=== PATIENT | male | born 1935 | race Caucasian/White ===

== ENCOUNTER 2020-01-02 07:13 | Outpatient (CLI) | payer MEDICARE, SELFPAY ==
[2020-01-02 07:53] LABS: Alanine Aminotransferase 19 U/L (4-50); Aspartate Amino Transferase 36 U/L (17-59); Cholesterol 131 mg/dL (0-200); HDL Direct 32 mg/dL; Triglycerides 86 mg/dL (<150)
[2020-01-02 08:04] LABS: LDL Cholesterol Direct 87 mg/dL
== END 2020-01-02 07:14 | disposition home or self-care (01) ==
LOC: ANHLAB 07:21
DX: I25.10 Atherosclerotic heart disease of native coronary artery without angina pectoris (principal)
CPT/HCPCS: 36415; 80061; 84450; 84460

== ENCOUNTER 2020-09-12 11:37 | Outpatient (NON) | payer MEDICARE, SELFPAY ==
[2020-09-14 13:24] LABS: SARS-CoV-2 RNA PCR Negative
== END 2020-09-12 11:38 ==
DX: Z20.828 Contact with and (suspected) exposure to other viral communicable diseases (principal)
CPT/HCPCS: 87635; C9803; U0003

== ENCOUNTER 2020-09-17 08:23 | Outpatient (CLI) | payer MEDICARE, SELFPAY ==
[2020-09-17 09:15] LABS: Cholesterol 112 mg/dL (0-200); HDL Direct 41 mg/dL; Triglycerides 54 mg/dL (<150)
[2020-09-17 09:26] LABS: LDL Cholesterol Direct 52 mg/dL
== END 2020-09-17 08:24 | disposition home or self-care (01) ==
DX: E78.5 Hyperlipidemia, unspecified (principal)
CPT/HCPCS: 36415; 80061

== ENCOUNTER 2021-01-10 06:56 | Outpatient (CLI) | payer MEDICARE, SELFPAY ==
[2021-01-10 07:52] LABS: Alanine Aminotransferase 20 U/L (4-50); Albumin Level 4.2 g/dL (3.5-5.1); Alkaline Phosphatase 57 U/L (38-126); Anion Gap 3 mmol/L (8-16); Aspartate Amino Transferase 35 U/L (17-59); Bilirubin,Total 0.4 mg/dL (0.2-1.3); Blood Urea Nitrogen 16 mg/dL (9-20); Calcium 9.4 mg/dL (8.4-10.2); Carbon Dioxide 33 mmol/L (22-30); Chloride 104 mmol/L (98-107); Cholesterol 114 mg/dL (0-200); Estimated Glomerular Filt Rate 52; Glucose 101 mg/dL (75-110); HDL Direct 36 mg/dL; Potassium 4.5 mmol/L (3.4-5.0); Sodium 140 mmol/L (137-145); Triglycerides 85 mg/dL (<150)
[2021-01-10 08:02] LABS: LDL Cholesterol Direct 58 mg/dL
== END 2021-01-10 06:57 | disposition home or self-care (01) ==
LOC: ANHLAB 07:07
DX: I25.10 Atherosclerotic heart disease of native coronary artery without angina pectoris (principal); I34.0 Nonrheumatic mitral (valve) insufficiency; E78.5 Hyperlipidemia, unspecified
CPT/HCPCS: 36415; 80053; 80061

== ENCOUNTER 2021-06-26 18:11 | Emergency (ER) | payer MEDICARE, SELFPAY ==
[2021-06-26 18:25] VITALS: BP 150/65; PULSE 51; RESP 18; TEMP 36.2; O2SAT 99
--- NOTE | 2021-06-26 18:33 | ED.DENTAL ---
HPI - Dental/Oral General Chief complaint: Dental/Oral Stated complaint: Thrush Time Seen by Provider: 06/26/21 18:33 Source: patient and RN notes reviewed Mode of arrival: ambulatory Limitations: no limitations History of Present Illness HPI Narrative: 86-year-old male presents to the [facility] with concerns for thrush. Had been on antibiotics and using Peridex and states the Peridex started burning and noticed this yellowy film in his mouth. No trouble eating. Had been on antibiotics Related Data Home Medications Medication Instructions Recorded Confirmed pravastatin 20 mg tablet 20 mg PO DAILY 01/05/21 06/26/21 chlorhexidine gluconate DIRECTED 06/26/21 Allergies Allergy/AdvReac Type Severity Reaction Status Date / Time No Known Allergies Allergy Verified 06/26/21 18:31 Review of Systems Review of Systems: All systems reviewed & are unremarkable except as noted in HPI and below Constitutional: Constitutional: Reports no additional constitutional complaints Eyes: Eyes: Reports no additional eye complaints ENT: Reports as per HPI Comments: yellow/ white spots on tongue and roof of the mouth Cardiovascular: Cardiovascular: Reports no additional cardiovascular complaints Respiratory: Respiratory: Reports no additional respiratory complaints Musculoskeletal: Musculoskeletal: Reports no additional musculoskeletal complaints Integumentary/Breasts: Skin/Breast: Reports system reviewed and no additional complaints, except as docu Neurologic: Reports system reviewed and no additional complaints, except as documented Psychiatric: Psychiatric: Reports no additional psychiatric complaints Allergic/Immunologic: Allergic/Immunologic: Reports no additional allergic/immunologic complaints [facility] Past Medical History Medical History High cholesterol Social History Social History Smoking status: Never smoker Alcohol intake: never Comments At the time of my signature, I reviewed and agree with the nursing past medical, surgical, social, and family history. There is no relevant family history pertinent to the patient complaint. Exam Const: General: healthy appearing, no acute distress and alert Nutritional Appearance: well nourished Orientation/consciousness: patient oriented x3 Limitations: no limitations HENMT: Head: normal to inspection Ears: hearing grossly normal bilaterally (Wears hearing aids bilateral), external ears normal, TM's normal bilaterally and EAC's normal General nose exam: Normal external nose present Face and sinus: normal facial exam Mouth: No dry mucous membranes, No drooling, No mouth trauma, No muffled voice, No trismus and Yes other (Yellow-white coating to the top of the tongue and roof of the mouth) Teeth and gingiva: other (Did not have his teeth in) Throat: posterior oropharynx normal Eyes: Pupils: Equal, round and reactive pupils present Neck: Neck: normal visual inspection, no lymphadenopathy and no meningeal signs Chest: Chest palpation & inspection: normal inspection of the chest Resp: Effort & Inspection: normal respiratory effort Auscultation: clear to auscultation bilaterally Cardio: Rate: regular rate Rhythm: regular rhythm Skin: General skin exam: normal color Rashes: no rashes Neuro: General: patient oriented x3, moves all extremities, no meningeal signs and no focal motor deficits Speech: normal speech Gait exam (Neuro): Normal gait present Extrem: General: normal to inspection Psych: Appearance: grossly normal and well kempt Mental Status: mental status grossly normal Affect: normal affect Attitude: cooperative Thought content: Yes Normal thought content present Course Course Emergency Course: Discharge instructions reviewed with patient, as well as provided in writing per nursing staff. The instructions also include specific and strict return
== END 2021-06-26 18:50 | disposition home or self-care (01) ==
PROVIDERS: Emergency Provider Nurse Practitioner
DX: B37.0 Candidal stomatitis (principal); E78.00 Pure hypercholesterolemia, unspecified
CPT/HCPCS: 99213; G0463

== ENCOUNTER 2023-01-16 08:14 | Outpatient (CLI) | payer MEDICARE, SELFPAY ==
[2023-01-16 10:36] LABS: Anion Gap 7 mmol/L (8-16); Blood Urea Nitrogen 20 mg/dL (9-20); Calcium 9.2 mg/dL (8.4-10.2); Carbon Dioxide 29 mmol/L (22-30); Chloride 103 mmol/L (98-107); Cholesterol 125 mg/dL (0-200); Estimated Glomerular Filt Rate 48; Glucose 99 mg/dL (65-110); HDL Direct 34 mg/dL; Potassium 4.6 mmol/L (3.4-5.0); Sodium 139 mmol/L (137-145); Triglycerides 76 mg/dL (<150)
[2023-01-16 10:47] LABS: LDL Cholesterol Direct 63 mg/dL
== END 2023-01-16 08:15 | disposition home or self-care (01) ==
DX: I25.10 Atherosclerotic heart disease of native coronary artery without angina pectoris (principal); I34.0 Nonrheumatic mitral (valve) insufficiency; E78.5 Hyperlipidemia, unspecified
CPT/HCPCS: 36415; 80048; 80061

== ENCOUNTER 2023-03-13 10:36 | Emergency (ER) | payer MEDICARE, SELFPAY ==
[2023-03-13 10:42] VITALS: BP 139/68; PULSE 56; RESP 16; TEMP 36.4; O2SAT 99
--- NOTE | 2023-03-13 10:42 | ED.URI ---
HPI - URI/Sore Throat General Chief Complaint: Upper Respiratory Infection Stated Complaint: Sore Throat Time Seen by Provider: 03/13/23 10:42 Source: patient Mode of arrival: ambulatory Limitations: no limitations History of Present Illness HPI Narrative: Alma Delia is an 87-year-old male patient presenting to the clinic today with complaints of sore throat that just began this morning. He reports no known nasal discharge/congestion. Took a DayQuil this morning that has help with the pain. No fever or chills. No known exposure to anyone with COVID, flu, or strep. MD elicited complaint: sore throat and nasal congestion Related Data Home Medications Medication Instructions Recorded Confirmed pravastatin 20 mg tablet 20 mg PO DAILY 01/05/21 03/13/23 Allergies Allergy/AdvReac Type Severity Reaction Status Date / Time No Known Allergies Allergy Verified 03/13/23 10:45 Review of Systems Review of Systems: Pertinent positives per HPI. Patient denies any fever, chills, rash, headache, visual changes, dizziness, cough, shortness of breath, chest pain, palpitations, nausea, vomiting, diarrhea, constipation, abdominal pain, or any urinary issues. [facility] Past Medical History Medical History High cholesterol Social History Social History Smoking status: Never smoker Alcohol intake: never Comments At the time of my signature, I reviewed and agree with the nursing past medical, surgical, social, and family history. There is no relevant family history pertinent to the patient complaint. Exam Narrative: General: Well-developed, well nourished, in no apparent distress Head: Normocephalic, atraumatic Eyes: Pupils equally round and reactive to light bilaterally, EOM intact, sclera and conjunctive clear, no discharge, lids normal Ears: TMs intact and clear, ear canals clear, no drainage, grossly hearing normal. Nose: Nares patent, clear nasal discharge, no inflammation, no sinus tenderness. Mouth: Oral pharynx without lesions or masses, good dentition, MMM. Tonsils surgically absent, no sign of oral thrush Neck: Supple, trachea midline, no enlargement of anterior or posterior cervical nodes, no thyroid masses or goiter palpable. Cardio: Regular rate and rhythm, s1 and s2 normal, no murmur appreciated. Resp: Clear to auscultation bilaterally, no rhonchi, rales, wheezing or rubs Course Course Emergency Course: Portions of this record may have been created with voice recognition software. Level of Care: Express Care Visit Vital Signs Vital signs: Vital signs reviewed MDM - URI/Sore Throat MDM Narrative Medical decision making narrative: At the time of visit patient is resting comfortably on the exam table. Strep screen was obtained and was negative in the clinic today. No sign of oral thrush. I suspect patient has viral pharyngitis. Supportive measures were discussed with the patient he voiced understanding of discharge instructions. Differential Diagnosis Differential diagnosis: Likely upper respiratory infection, otitis media, sinusitis, viral infection, bronchitis, influenza and pharyngitis Discharge Plan Discharge Clinical Impression: Pharyngitis Qualifiers: Pharyngitis/tonsillitis etiology: unspecified etiology Qualified Code(s): J02.9 - Acute pharyngitis, unspecified Patient Disposition: Home, Self-Care Condition: Stable Instructions: Antibiotic Form, Pharyngitis (ED) Additional Instructions: Strep screen was negative in the clinic today. We will send for culture if this comes back positive we will contact you in place you on antibiotics at that time Increase fluids and stay well hydrated Tylenol/motrin for pain/fever Flonase and OTC antihistamines as directed Vicks vapor rub to open sinuses Sinus rinses for congestion Cepacol spray, cough drops
== END 2023-03-13 11:00 | disposition home or self-care (01) ==
PROVIDERS: Emergency Provider Nurse Practitioner Family
DX: J02.9 Acute pharyngitis, unspecified (principal); E78.00 Pure hypercholesterolemia, unspecified
CPT/HCPCS: 87081; 87880; 99213; G0463

== ENCOUNTER 2023-06-25 07:01 | Outpatient (CLI) | payer MEDICARE, SELFPAY ==
[2023-06-25 07:24] LABS: Basophils Percent Auto 0.3 % (0.2-1.2); Eosinophils Absolute Auto 0.3 K/mm3 (0-0.3); Hematocrit 39.6 % (42.0-52.0); Hemoglobin 12.6 g/dL (14.0-18.0); Immature Granulocyte Absolute 0.02 K/mm3 (0.00-0.031); Immature Granulocyte Percent A 0.3 % (0-0.5); Lymphocytes Absolute Auto 2.27 K/mm3 (0.9-3.2); Lymphocytes Percent Auto 34.7 % (18.3-44.2); Mean Corpuscular HGB Conc 31.8 g/dl (32-36); Mean Corpuscular Hemoglobin 30.9 pg (26-34); Mean Corpuscular Volume 97.1 fl (80-100); Mean Platelet Volume 9.2 fl (7.4-10.4); Monocytes Absolute Auto 0.8 K/mm3 (0.1-0.6); Monocytes Percent Auto 12.7 % (2.6-8.5); Neutrophils Absolute Auto 3.1 K/mm3 (1.3-6.7); Platelet Count Result 135 k/mm3 (150-375); Red Blood Count 4.08 M/mm3 (4.6-6.20); Red Cell Distribution Width 14.6 % (11.5-14.5); White Blood Count 6.5 K/mm3 (4.5-10.0)
[2023-06-25 07:31] LABS: Alanine Aminotransferase 21 U/L (6-50); Albumin Level 4.4 g/dL (3.5-5.1); Alkaline Phosphatase 67 U/L (38-126); Anion Gap 7 mmol/L (8-16); Aspartate Amino Transferase 39 U/L (17-59); Bilirubin,Total 0.6 mg/dL (0.2-1.3); Blood Urea Nitrogen 18 mg/dL (9-20); Calcium 9.2 mg/dL (8.4-10.2); Carbon Dioxide 29 mmol/L (22-30); Chloride 102 mmol/L (98-107); Cholesterol 129 mg/dL (0-200); Estimated Glomerular Filt Rate 57; Glucose 99 mg/dL (65-110); HDL Direct 42 mg/dL; Potassium 4.4 mmol/L (3.4-5.0); Sodium 138 mmol/L (137-145); Triglycerides 92 mg/dL (<150)
[2023-06-25 07:42] LABS: LDL Cholesterol Direct 69 mg/dL
[2023-06-25 08:02] LABS: Prostate Specific Antigen 1.3 ng/mL (< OR = 4.0)
[2023-06-25 08:12] LABS: Vitamin D 25 Hydroxy 43.1 ng/mL
[2023-06-25 08:52] LABS: Free T4 Free Thyroxine Reflex 0.83 ng/dL (0.78-2.19)
[2023-06-25 09:37] LABS: Total Triiodothyronine (T3) 1.11 NG/ML (0.97-1.69)
== END 2023-06-25 07:02 | disposition home or self-care (01) ==
PROVIDERS: PCP Family Medicine; Visit Provider Family Medicine
DX: R39.9 Unspecified symptoms and signs involving the genitourinary system (principal); E78.5 Hyperlipidemia, unspecified; E55.9 Vitamin D deficiency, unspecified; H91.90 Unspecified hearing loss, unspecified ear; R42 Dizziness and giddiness; Z13.29 Encounter for screening for other suspected endocrine disorder; Z79.899 Other long term (current) drug therapy; Z12.5 Encounter for screening for malignant neoplasm of prostate; E53.8 Deficiency of other specified B group vitamins
CPT/HCPCS: 36415; 80053; 80061; 82306; 82607; 84153; 84439; 84443; 84480; 85025; G0103

== ENCOUNTER 2023-07-30 07:23 | Outpatient (CLI) | payer MEDICARE, SELFPAY ==
[2023-07-30 07:53] LABS: Basophils Percent Auto 0.3 % (0.2-1.2); Eosinophils Absolute Auto 0.3 K/mm3 (0-0.3); Eosinophils Percent Auto 4.3 % (0-4.4); Hematocrit 39.3 % (42.0-52.0); Hemoglobin 12.4 g/dL (14.0-18.0); Immature Granulocyte Absolute 0.03 K/mm3 (0.00-0.031); Immature Granulocyte Percent A 0.5 % (0-0.5); Lymphocytes Absolute Auto 2.24 K/mm3 (0.9-3.2); Lymphocytes Percent Auto 34.7 % (18.3-44.2); Mean Corpuscular HGB Conc 31.6 g/dl (32-36); Mean Corpuscular Hemoglobin 30.4 pg (26-34); Mean Corpuscular Volume 96.3 fl (80-100); Mean Platelet Volume 9.6 fl (7.4-10.4); Monocytes Absolute Auto 0.7 K/mm3 (0.1-0.6); Monocytes Percent Auto 11.5 % (2.6-8.5); Neutrophils Absolute Auto 3.1 K/mm3 (1.3-6.7); Neutrophils Percent Auto 48.7 % (45.5-73.1); Platelet Count Result 140 k/mm3 (150-375); Red Blood Count 4.08 M/mm3 (4.6-6.20); Red Cell Distribution Width 14.2 % (11.5-14.5); White Blood Count 6.5 K/mm3 (4.5-10.0)
[2023-07-30 09:28] LABS: Free T4 Free Thyroxine Reflex 0.74 ng/dL (0.78-2.19)
== END 2023-07-30 07:24 | disposition home or self-care (01) ==
PROVIDERS: PCP Family Medicine; Visit Provider Family Medicine
DX: D69.6 Thrombocytopenia, unspecified (principal); E78.5 Hyperlipidemia, unspecified; R79.89 Other specified abnormal findings of blood chemistry
CPT/HCPCS: 36415; 84439; 84443; 85025

== ENCOUNTER 2023-09-14 08:24 | Outpatient (CLI) | payer MEDICARE, SELFPAY | END 2023-09-14 08:25 | disposition home or self-care (01) | LOC: ANHLAB 08:26 | PROVIDERS: PCP Family Medicine; Visit Provider Family Medicine | DX: E03.9 Hypothyroidism, unspecified (principal) | CPT/HCPCS: 36415; 84443 ==

== ENCOUNTER 2024-01-16 16:48 | Outpatient (CLI) | payer MEDICARE, SELFPAY ==
[2024-01-16 17:13] LABS: Basophils Percent Auto 0.3 % (0.2-1.2); Eosinophils Absolute Auto 0.3 K/mm3 (0-0.3); Eosinophils Percent Auto 3.6 % (0-4.4); Hemoglobin 12.8 g/dL (14.0-18.0); Immature Granulocyte Absolute 0.02 K/mm3 (0.00-0.031); Immature Granulocyte Percent A 0.3 % (0-0.5); Lymphocytes Absolute Auto 2.83 K/mm3 (0.9-3.2); Lymphocytes Percent Auto 39.4 % (18.3-44.2); Mean Corpuscular HGB Conc 31.2 g/dl (32-36); Mean Corpuscular Hemoglobin 29.8 pg (26-34); Mean Corpuscular Volume 95.6 fl (80-100); Mean Platelet Volume 9.4 fl (7.4-10.4); Monocytes Absolute Auto 0.7 K/mm3 (0.1-0.6); Monocytes Percent Auto 9.9 % (2.6-8.5); Neutrophils Absolute Auto 3.4 K/mm3 (1.3-6.7); Neutrophils Percent Auto 46.5 % (45.5-73.1); Platelet Count Result 166 k/mm3 (150-375); Red Blood Count 4.29 M/mm3 (4.6-6.20); Red Cell Distribution Width 14.8 % (11.5-14.5); White Blood Count 7.2 K/mm3 (4.5-10.0)
[2024-01-16 17:25] LABS: Alanine Aminotransferase 24 U/L (6-50); Albumin Level 4.4 g/dL (3.5-5.1); Alkaline Phosphatase 71 U/L (38-126); Anion Gap 4 mmol/L (8-16); Aspartate Amino Transferase 47 U/L (17-59); Bilirubin,Total 0.5 mg/dL (0.2-1.3); Blood Urea Nitrogen 18 mg/dL (9-20); Carbon Dioxide 33 mmol/L (22-30); Chloride 103 mmol/L (98-107); Estimated Glomerular Filt Rate 52; Glucose 104 mg/dL (65-110); Potassium 4.6 mmol/L (3.4-5.0); Sodium 140 mmol/L (137-145)
[2024-01-16 18:29] LABS: Iron 66 ug/dL (49-181)
[2024-01-17 01:27] LABS: Percent Iron Saturation 19 % (20-50)
== END 2024-01-16 16:49 | disposition home or self-care (01) ==
LOC: ANHLAB 16:50
PROVIDERS: PCP Family Medicine; Visit Provider Family Medicine
DX: D64.9 Anemia, unspecified (principal); I10 Essential (primary) hypertension; E78.5 Hyperlipidemia, unspecified
CPT/HCPCS: 36415; 80053; 82728; 83540; 83550; 84443; 85025

== ENCOUNTER 2024-08-01 07:30 | Outpatient (CLI) | payer MEDICARE, SELFPAY ==
[2024-08-01 07:57] LABS: Alanine Aminotransferase 20 U/L (6-50); Albumin Level 4.3 g/dL (3.5-5.1); Alkaline Phosphatase 70 U/L (38-126); Anion Gap 8 mmol/L (4-12); Aspartate Amino Transferase 38 U/L (17-59); Bilirubin,Total 0.5 mg/dL (0.2-1.3); Blood Urea Nitrogen 20 mg/dL (9-20); Carbon Dioxide 29 mmol/L (22-30); Chloride 102 mmol/L (98-107); Cholesterol 111 mg/dL (0-200); Estimated Glomerular Filt Rate 52; Glucose 94 mg/dL (65-110); HDL Direct 44 mg/dL; Potassium 4.2 mmol/L (3.4-5.0); Sodium 139 mmol/L (137-145); Triglycerides 62 mg/dL (<150)
[2024-08-01 08:08] LABS: LDL Cholesterol Direct 51 mg/dL
[2024-08-01 08:28] LABS: Prostate Specific Antigen 1.6 ng/mL (< OR = 4.0)
[2024-08-01 08:36] LABS: Hemoglobin A1C 5.8 % (<5.7)
[2024-08-01 08:42] LABS: Basophils Percent Auto 0.5 % (0.2-1.2); Eosinophils Absolute Auto 0.3 K/mm3 (0-0.3); Eosinophils Percent Auto 4.7 % (0-4.4); Hematocrit 39.4 % (42.0-52.0); Hemoglobin 12.5 g/dL (14.0-18.0); Immature Granulocyte Absolute 0.01 K/mm3 (0.00-0.031); Immature Granulocyte Percent A 0.2 % (0-0.5); Lymphocytes Percent Auto 40.5 % (18.3-44.2); Mean Corpuscular HGB Conc 31.7 g/dl (32-36); Mean Corpuscular Hemoglobin 30.8 pg (26-34); Mean Platelet Volume 9.9 fl (7.4-10.4); Monocytes Absolute Auto 0.7 K/mm3 (0.1-0.6); Monocytes Percent Auto 11.5 % (2.6-8.5); Neutrophils Absolute Auto 2.6 K/mm3 (1.3-6.7); Neutrophils Percent Auto 42.6 % (45.5-73.1); Platelet Count Result 157 k/mm3 (150-375); Red Blood Count 4.06 M/mm3 (4.6-6.20); Red Cell Distribution Width 14.7 % (11.5-14.5); White Blood Count 6.2 K/mm3 (4.5-10.0)
[2024-08-01 09:16] LABS: Vitamin D 25 Hydroxy 78.8 ng/mL
== END 2024-08-01 07:31 | disposition home or self-care (01) ==
PROVIDERS: PCP Family Medicine; Visit Provider Family Medicine
DX: E55.9 Vitamin D deficiency, unspecified (principal); E53.8 Deficiency of other specified B group vitamins; Z12.5 Encounter for screening for malignant neoplasm of prostate; E78.5 Hyperlipidemia, unspecified; R73.9 Hyperglycemia, unspecified; I12.9 Hypertensive chronic kidney disease with stage 1 through stage 4 chronic kidney disease, or unspecified chronic kidney disease; N18.31 Chronic kidney disease, stage 3a
CPT/HCPCS: 36415; 80053; 80061; 82306; 82607; 83036; 84153; 84443; 85025; G0103

== ENCOUNTER 2024-12-24 14:51 | Outpatient (CLI) | payer MEDICARE, SELFPAY | END 2024-12-24 14:52 | disposition home or self-care (01) | PROVIDERS: PCP Family Medicine; Visit Provider Family Medicine | DX: R09.89 Other specified symptoms and signs involving the circulatory and respiratory systems (principal) | CPT/HCPCS: 71046 ==

== ENCOUNTER 2025-01-29 11:25 | Outpatient (CLI) | payer MEDICARE, SELFPAY ==
--- NOTE | ~2025-01-29 | CT_ITS ---
CT Scan of the Chest without Contrast: Clinical Indication: Chest pain, shortness of breath Technique: Contiguous sections were acquired throughout the chest without intravenous contrast. Dose reduction technique was used on this scan by utilizing automated exposure control and iterative recon struction technique. The dose-length product (DLP) was 180.04 mGy-cm. Findings: There is no evidence of any significant mediastinal, hilar or axillary lymphadenopathy. Coronary silviano ry calcifications are present. There is no evidence of pleural or pericardial effusion. There is mild chronic interstitial disease, diffuse minimal subpleural reticulation and slightly more pronounced interstitial thickening peripherally the lung bases. There is also prominent right apical scarring and focal bronchiectatic change. Images through the upper abdomen reveal no abnormalities. Impression: Chronic interstitial disease, as above. Additional right apical scarring and probable bronchiectatic change. No suspicious pulmonary nodule identified. Reviewed, dictated and finalized at [facility]. Impression: Chronic interstitial disease, as above. Additional right apical scarring and probable bronchiectatic change. No suspicious pulmonary nodule identified.
== END 2025-01-29 11:26 | disposition home or self-care (01) ==
LOC: GOSHIMG 11:26
PROVIDERS: PCP Family Medicine; Visit Provider Family Medicine
DX: R09.89 Other specified symptoms and signs involving the circulatory and respiratory systems (principal); R06.02 Shortness of breath; J84.9 Interstitial pulmonary disease, unspecified
CPT/HCPCS: 71250

== ENCOUNTER 2025-02-03 08:45 | Outpatient (CLI) | payer MEDICARE, SELFPAY ==
--- OUTSIDE RECORDS SUMMARY | 2025-02-03 09:17 | XMS_ITS | Clinical Summary ---
Author Organization [facility] Address [address] [place] [address] Care Team Providers Care Internet Sales Representative Name Role Phone Kaleigh Henderson MD Primary Care Provider Allergies No known active allergies Medications vitamin A-vitamin C-vitamin E tablet daily 9 Active cholecalciferol (VITAMIN D-3) 1,000 unit daily 0 Active ibuprofen (ADVIL,MOTRIN) 800 mg tablet TAKE 1 TABLET EVERY 6 HOURS NEEDED. Active loperamide (IMODIUM A-D) 2 mg tablet daily Active folic acid 20 mg capsule daily 9 Active multivitamin tablet daily Active beta carotene 10,000 unit capsule Take by mouth 7 Active BIOFLAVONOIDS, [place] ORAL Take by mouth 7 Active fluorouracil (EFUDEX) 5 % cream Apply topically 7 Active aspirin 81 mg enteric coated tablet Take 1 tablet (81 mg total) by mouth daily 30 tablet 11 0 Active sodium, potassium & mag sulfates (SUPREP BOWEL KIT) 17.5-3.13-1.6 gram recon solnIndications :Bowel Evacuation Drink 1 bottle at 6pm the night before procedure. Drink 2nd bottle 4 hours prior to leaving home. 354 mL 1 Active Additional Information Patient not taking.Reported on 05/28/2024 valACYclovir (VALTREX) 1 gram tablet TK 2 TS PO BID FOR 1 DAY 9 Active pravastatin (PRAVACHOL) 20 mg tablet TAKE 1 TABLET(20 MG) BY MOUTH EVERY NIGHT 30 tablet 5 2 Active Additional Information Patient taking differently: 10 mg oral Daily, Reported on 05/28/2024 levothyroxine (SYNTHROID) 50 mcg tablet Take 1 tablet (50 mcg total) by mouth every morning 4 Active acetaminophen (TYLENOL) 500 mg tablet Take 1 tablet (500 mg total) by mouth every 6 (six) hours as needed Active Active Problems Problem Noted Date Diagnosed Date Other hyperlipidemia 01/17/2023 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 Stable. With negative ischemic work up in December 2022. Continue pravastatin 20 mg every other day. LDL December. Continue ASA. Follow up with DR. Abbasi in one year.. Nonrheumatic mitral valve regurgitation 01/18/20 Assessment & Plan (01/17/2023 3:00 PM CDT): Mild to Moderate. Monitor. 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 Cardiology [address] [place] [address] [place] [address] Jonathan Markham MD from Last 3 Months Family History Medical History Relation Name Comments Stroke Father Family history of stroke - (Added by TW Conv) No Known Problems Mother Hypertension Sister Relation Name Status Comments Father Mother Sister Social History Tobacco Use Types Packs/Day Years Used Date Smoking Tobacco: Never Smokeless Tobacco: Never Sex and Gender Information Value Date Recorded Sex Assigned at Not on file Legal Sex Male 4:34 AM LIEUTENANT BALLISTICS Gender Identity Male 12/31/2019 11:55 AM [employer]IE[employer]ENANT B[employer]IST[employer] Sexual Orientation Not on file Obstetrics History Last Filed Vital Signs Vital Sign Reading Time Taken Comments Blood Pressure 150/69 05/28/2024 3:50 PM CDT Pulse 62 05/28/2024 3:50 PM CDT Temperature 36 C (96.8 F) 12/05/2020 12:54 PM LIEUTENANT BALLISTICS Respiratory Rate 16 12/05/2020 1:10 PM LIEUTENANT BALLISTICS Oxygen Saturation 98% 05/28/2024 3:50 PM CDT Inhaled Oxygen Concentration - - Weight 68.3 kg (150 lb 9.6 oz) 05/28/2024 3:50 P M CDT Height 170.2 cm (5' 7 ) 05/28/2024 3:50 PM CDT Body Mass Index 23.59 05/28/2024 3:50 PM CDT Plan of Treatment Health Maintenance Due Date Last Done Comments Depression Screening 1935 Hepatitis B Screening 1953 Well Visit 65+ 2000 DTaP/Tdap/Td Vaccine (2 - Tdap) 05/12/2014 4 Zoster Vaccine (2 of 3) 05/19/2014 03/24/2014 Fall Risk Assessment 12/05/2021 12/05/2020 Covid-19 Vaccine (4 - 2023-2 5 season) 2024 08/25/2021, 12/23/2020, 12/02/2020 Influenza Vaccine (Season Ended) 2025 08/08/2021, 07/29/2020, 07/14/2019, Additional history exists Pneumococcal vaccine 65+ Completed 08/02/2015, 12/2006 Insurance MEDICARE [facility] MEDICARE [facility] Advance Directives For more information, please contact: [phone] * Full Code (Latest Code Status on File) Date Activated Date Inactivated Comments 12/05/2020 11:38 AM 12/05/2020 5:27 PM Care Teams Internet Sales Representative Relationship Specialty Start Date End Date Kaleigh Henderson MD [address] [facility] [address] [place] [id number] PCP - General Family Practice 06/10/24
--- OUTSIDE RECORDS SUMMARY | 2025-02-03 09:17 | XMS_ITS | Clinical Summary ---
Author Organization [facility] Address [address] [place] [address] Care Team Providers Care Senior Lead Java Developer Name Role Phone Jaime Verdin MD Primary Care Provider [phone] Source Comments [facility],non-owned Affiliates and Associated Physician Practices is amultiple site organization consisting of ambulatory clinics and hospital sitesin [place], [place], [place] and [place]. This disclosure is being madepursuant to the Care Everywhere program and may not contain all information available regarding this patient. Last updated 18.[facility] Allergies No known active allergies Medications * Be aware that medications may not be up to date on this document. Alwaysverify current medications with the patient. Medication Sig Dispensed Refills Start Date End Date Status aspirin (ASPIRIN) 81 MG tablet Take 81 mg by mouth DAILY. 08/06/2017 Active Vitamin D3 (CHOLECALCIFEROL) 2000 UNITS capsule Take by mouth. 08/06/2017 Ac tive fluorouracil (EFUDEX) 5 % cream Apply to affected area BID. 08/06/2017 Active Beta Carotene 48347 UNITS Take by mouth. 08/06/2017 Active Folic Acid 0.8 MG Take by mouth. 08/06/2017 Act alonso simvastatin (ZOCOR) 5 MG tablet Take by mouth. 08/06/2017 Active Bioflavonoid Products (VITAMIN C/BIOFLAVONOIDS) 1000-25 MG Take by mouth. 08/06/2017 Active Active Problems No known active problems Social History Tobacco Use Types Packs/Day Years Used Date Smoking Tobacco: Never Smokeless Tobacco: Never Alcohol Use Standard Drinks/Week Comments No 0 (1 standard drink = 0.6 oz pur e alcohol) Sex and Gender Information Value Date Recorded Sex Assigned at Not on file Gender Identity Not on file Sexual Orientation Not on file Last Filed Vital Signs Vital Sign Reading Time Taken Comments Blood Pressure 166/91 10/10/2021 9:42 AM DISTRICT ENGINEER Pulse 68 10/10/2021 9:42 AM DISTRICT ENGINEER Temperature - - Respiratory Rate - - Oxygen Saturation 98% 09/03/2017 10:27 AM DISTRICT ENGINEER Inhaled Oxygen Concentration - - Weight 64.9 kg (143 lb) 10/10/2021 9:42 AM DISTRICT ENGINEER Height 170.2 cm (5' 7 ) 10/10/2021 9:42 AM DISTRICT ENGINEER Body Mass Index 22.4 10/10/2021 9:42 AM DISTRICT ENGINEER Plan of Treatment Health Maintenance Due Date Last Done Comments MEDICARE AWV 12 MONTHS 1935 DTAP/TDAP/TD VACCINES (1 - Tdap) 1954 PNEUMOCOCCAL VACCINE 50+ (1 of 1 - PCV) 1985 ZOSTER VACCINE (1 of 2) 1985 Respiratory Syncytial Virus (RSV) Vaccine Pt: or over 60 yrs (1 - 1-dose 75+ series) 2010 COVID-19 VACCINE ( - 2023-2 5 season) 2024 DEPRESSION SCREENING 10/28/2024 INFLUENZA VACCINE (Season Ended) 2025 07/14/20 19 HEPATITIS B VACCINE Aged Out No longe r eligible based on patient's age to complete this topic HIB VACCINE Aged Out No longer eligi ble based on patient's age to complete this topic HPV VACCINE Aged Out No longer eligi ble based on patient's age to complete this topic MENINGOCOCCAL (Group B) VACC INE SHARED DECISION-MAKING Aged Out No longer eligibl e based on patient's age to complete this topic MENINGOCOCCAL GROUPS A/C/Y/W VACCINE Aged Out No longer eligible b ased on patient's age to complete this topic Care Teams Senior Lead Java Developer Relationship Specialty Start Date End Date Jaime Verdin MD PCP - General 07/17/17
--- OUTSIDE RECORDS SUMMARY | 2025-02-03 09:17 | XMS_ITS | Referral Summary ---
Author Organization [facility] Address [address] [place] [address] Care Team Providers Care Desktop Analyst Name Role Phone Kaleigh Henderson MD Primary Care Provider Encounters Date Type Department Care Team Description 02/02/2025 Telephone [facility] Cardiology [address] [place] [address] [place] [address] Jnoathan Markham MD from Last 3 Months Allergies No known active allergies Medications vitamin [...] hyperlipidemia 01/17/2023 Coronary artery disease invo lving [place] heart without angina pectoris 01/17/2023 Assessment & [...] (11/03/2020): Added automatically from request for surgery [id number] Social History Tobacco Use Types Packs/Day Years Used Date Smoking Tobacco: Never Smokeless Tobacco: Never Sex and Gender Information Value Date Recorded Sex Assigned at Not on file Legal Sex Male 4:34 AM RATINGS ANALYST Gender Identity Male 12/31/2019 11:55 AM RATINGS ANALYST Sexual Orientation Not on file Last Filed Vital Signs Vital Sign Reading Time Taken Comments Blood Pressure 150/69 05/28/2024 3:50 PM CDT Pulse 62 05/28/2024 3:50 PM CDT Temperature 36 C (96.8 F) 12/05/2020 12:54 PM RATINGS ANALYST Respiratory Rate 16 12/05/2020 1:10 PM RATINGS ANALYST Oxygen Saturation 98% 05/28/2024 3:50 PM CDT Inhaled Oxygen Concentration - - Weight 68.3 kg (150 lb 9.6 oz) 05/28/2024 3:50 P M CDT Height 170.2 cm (5' 7 ) 05/28/2024 3:50 PM CDT Body Mass Index 23.59 05/28/2024 3:50 PM CDT Plan of Treatment Not on file Insurance [id number] MEDICARE [facility] MEDICARE [facility] Advance Directives For more information, please contact: [phone] * Full Code (Latest Code Status on File) Date Activated Date Inactivated Comments 12/05/2020 11:38 AM 12/05/2020 5:27 PM Care Teams Desktop Analyst Relationship Specialty Start Date End Date Kaleigh Henderson MD [address] [facility] [address] [address] [place] [id number] PCP - General Family Practice 06/10/24
--- OUTSIDE RECORDS SUMMARY | 2025-02-03 09:17 | XMS_ITS | Encounter Summary ---
Author Organization [facility] Address [address] [facility] [place] [address] Care Team Providers Care Picc Nurse Name Role Phone Jaime Verdin MD Primary Care Provider [phone] Encounter Details Date Type Department Care Team (Late st Contact Info) Description 09/28/2020 Lab Requisition [facility] Derm[facility] Lab [address] [facility], [place] [address] Arlene Goss DO [address] [facility] 3 DEPT [place] [address] Social History Tobacco Use Types Packs/Day Years Used Date Smoking Tobacco: Never Smokeless Tobacco: Never Alcohol Use Standard Drinks/Week Comments No 0 (1 standard drink = 0.6 oz pur e alcohol) Sex and Gender Information Value Date Recorded Sex Assigned at Not on file Gender Identity Not on file Sexual Orientation Not on file documented as of this encounter Plan of Treatment Not on file documented as of this encounter Procedures Procedure Name Priority Date/Time Associated Diagnosis Comments DERMATOPATHOLOGY Routine 09/27/2020 12:0 0 AM SENIOR SUPPLIER QUALITY ENGINEER documented in this encounter Results * DERMATOPATHOLOGY (09/27/2020 12:00 AM SENIOR SUPPLIER QUALITY ENGINEER) Case Report Dermatopathology Report Case: [id number] Authorizing Provider: Arlene Goss DO Collected: 09/27/2020 12:00 AM Ordering Location: [facility] Derm[facility] Lab Received: 09/28/2020 11:11 AM Pathologist: Margarita Castillo MD Specimens: A) - Skin, left wrist B) - Skin, right anterior shoulder C) - Skin, left back 0 4:06 PM [facility] DERMATOPATHOLOGY LABORATORY Final Diagnosis Specimen A. 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 SKIN, left back: ACTINIC KERATOSIS, LICHENOID (L57.0) 0 4:06 PM [facility] DERMATOPATHOLOGY LABORATORY Clinical History A-C: R/O NMSC. 0 4:06 PM [facility] DERMATOPATHOLOGY LABORATORY Gross Description Specimen A: Received is one formalin filled container labeled with the patient's name and designated left wrist. The specimen consists of a shave measuring [id number]. Jar 0. Specimen B: Received is one formalin filled container labeled with the patient's name and designated right anterior shoulder. The specimen consists of a shave measuring [id number]. Jar 0. Specimen C: Received is one formalin filled container labeled with the patient's name and designated left back. The specimen consists of a shave measuring [id number]. Jar 0. 0 4:06 PM [facility] DERMATOPATHOLOGY LABORATORY Microscopic Description Specimen A. SKIN, left wrist: Within the dermis there are aggregates of basaloid cells with a high nuclear to cytoplasmic ratio and peripheral palisading. There are also focal areas with squamous differentiation within the nests. Specimen B. SKIN, right anterior shoulder: Attached to the undersurface of the epidermis, there are small aggregates of basaloid cells with a high nuclear to cytoplasmic ratio and peripheral palisading. Specimen C. SKIN, left back: There is focal parakeratosis. The lower half of the epidermis shows disorderly maturation of keratinocytes with nuclear pleomorphism. The dermis shows a band-like, chronic inflammatory infiltrate with occasional apoptotic keratinocytes and some basal vacuolar alteration. 0 4:06 PM [facility] DERMATOPATHOLOGY LABORATORY Disclaimer An external and internal positive and negative controls are appropriate for the histochemical, immunohistochemical and immunofluorescence stain(s) in this case (if any), except where stated explicitly. The performance characteristics of the stain(s) cited in this report were developed and its performance characteristic determined by the Dermatopathology Laboratory at [facility], directed by Dr. Cristina Renteria. These tests need not be, and therefore are not, approved by the [place] Food and Drug Administration. The tests are used for clinical purposes. Billing Codes Specimen Charges Stain Charges 47439 61631 36056 1 1 1 0 4:06 PM SENIOR SUPPLIER QUALITY ENGINEER DERMATOPATHOLOGY LABORATORY Embedded Images 0 4:06 PM SENIOR SUPPLIER QUALITY ENGINEER DERMATOPATHOLOGY LABORATORY Pathology/Cytology TISSUE SPECIMEN FROM SKIN / Unknown 09/27/2020 09/28/2020 11:11 AM SENIOR SUPPLIER QUALITY ENGINEER Miscellaneous samples (specimen) TISSUE SPECIMEN FROM SKIN / Unknown 09/27/2020 09/28/2020 11:11 AM SENIOR SUPPLIER QUALITY ENGINEER Miscellaneous samples (specimen) TISSUE SPECIMEN FROM SKIN / Unknown 09/27/2020 09/28/2020 11:11 AM SENIOR SUPPLIER QUALITY ENGINEER Arlene Goss DO LAB - PATHOLOGY/C YTOLOGY ORDERABLES DERMATOPATHOLOGY LABORATORY [facility] - Department of Dermatology [facility] Medicine [address] [place] [address], [address]rd Floor [address] [phone] documented in this encounter Visit Diagnoses Not on filedocumented in this encounter Care Teams Picc Nurse Relationship Specialty Start Date End Date Jaime Verdin MD PCP - General 07/17/17 documented as of this encounter
--- OUTSIDE RECORDS SUMMARY | 2025-02-03 09:17 | XMS_ITS | Encounter Summary ---
Author Organization [facility] Address [address] [place] [address] Care Team Providers Care Carbon Brush Maker Name Role Phone Jaime Verdin MD Primary Care Provider [phone] Encounter Details Date Type Department Care Team (Late st Contact Info) Description 10/19/2020 Lab Requisition [facility] DermPath Lab [address] [facility] [place] [address] Haily Barkley MD [facility] [place] [address] Social History Tobacco Use Types Packs/Day Years [...] Priority Date/Time Associated Diagnosis Comments DERMATOPATHOLOGY Routine 10/18/2020 12:0 0 AM ANATOMY TEACHER documented in this encounter Results * DERMATOPATHOLOGY (10/18/2020 12:00 AM ANATOMY TEACHER) Case Report Dermatopathology Report Case: [id number] Authorizing Provider: Haily Barkley MD Collected: 10/18/2020 12:00 AM Ordering Location: [facility] DermPath Lab Received: 10/19/2020 01:07 PM Pathologist: Yvonne Lee MD Specimen: Skin, left wrist 0 1:43 PM ANATOMY TEACHER DERMATOPATHOLOGY LABORATORY Final Diagnosis Specimen A. SKIN, left wrist: BASAL CELL CARCINOMA (C44.619) NOT PRESENT AT MARGIN DERMAL SCAR (L90.5) 0 1:43 PM ANATOMY TEACHER DERMATOPATHOLOGY LABORATORY Clinical History R/O BCC, biopsy proven. 0 1:43 PM [facility] DERMATOPATHOLOGY LABORATORY Gross Description Specimen A: Received is one formalin filled container labeled with the patient's name and designated left wrist.The specimen consists of an ellipse measuring [id number] and is oriented with the suture at the 12 o'clock position labeled on the requisition as proximal. The 12 to 6 o'clock margin is inked green. The 6 o'clock to 12 o'clock margin is inked black. The 12 o'clock tip is submitted in cassette 1. The 6 o'clock tip is submitted in cassette 2. The remainder of the ellipse is serially sectioned and submitted in cassettes 3-4. Jar 0. 0 1:43 PM [facility] DERMATOPATHOLOGY LABORATORY Microscopic Description Specimen A. SKIN, left wrist: Within the dermis there are aggregates of basaloid cells with a high nuclear to cytoplasmic ratio and peripheral palisading. This lesion is not present at the margin of the specimen. There are fibroblasts and collagen bundles oriented parallel to the skin surface with elongated blood vessels, some of which are oriented perpendicular to the skin surface. 0 1:43 PM [facility] DERMATOPATHOLOGY LABORATORY Disclaimer An external and internal positive and negative controls are appropriate for the histochemical, immunohistochemical and immunofluorescence stain(s) in this case (if any), except where stated explicitly. The performance characteristics of the stain(s) cited in this report were developed and its performance characteristic determined by the Dermatopathology Laboratory at [facility], directed by Dr. Cristina Renteria. These tests need not be, and therefore are not, approved by the [place] Food and Drug Administration. The tests are used for clinical purposes. Billing Codes Specimen Charges Stain Charges 88408 1 0 1:43 PM [facility] DERMATOPATHOLOGY LABORATORY Embedded Images 0 1:43 PM ANATOMY TEACHER DERMATOPATHOLOGY LABORATORY Pathology/Cytolog y TISSUE SPECIMEN FROM SKIN / Unknown 10/18/2020 10/19/2020 1:07 PM ANATOMY TEACHER Haily Barkley MD LAB - PATHOLOGY/CYTO LOGY ORDERABLES DERMATOPATHOLOGY LABORATORY [facility] - Department of Dermatology [facility] Specialized Medicine [address] [place] [address], [address] [phone] documented in this encounter Visit Diagnoses Not on filedocumented in this encounter Care Teams Carbon Brush Maker Relationship Specialty Start Date End Date Jaime Verdin MD PCP - General 07/17/17 documented as of this encounter
--- OUTSIDE RECORDS SUMMARY | 2025-02-03 09:17 | XMS_ITS | Encounter Summary ---
Author Organization [facility] Address [address] [facility] [place] [address] Care Team Providers Care Front Office Clerk Name Role Phone Jaime Verdin MD Primary Care Provider [phone] Encounter Details Date Type Department Care Team (Late st Contact Info) Description 06/08/2020 Lab Requisition [facility] DermPath Lab [address] [facility], [place] [address] Krissy Guerrero MD [address] [facility] 3 [place] [address] Social History Tobacco Use Types Packs/Day Years [...] Priority Date/Time Associated Diagnosis Comments DERMATOPATHOLOGY Routine 06/07/2020 12:0 0 AM CDT documented in this encounter Results * DERMATOPATHOLOGY (06/07/2020 12:00 AM CDT) Case Report Dermatopathology Report Case: [id number] Authorizing Provider: Krissy Guerrero MD Collected: 06/07/2020 12:00 AM Ordering Location: [facility] DermPath Lab Received: 06/08/2020 03:20 PM Pathologist: Margarita Castillo MD Specimens: A) - Skin, crown of scalp B) - Skin, right FA C) - Skin, left lat prieto 0 5:06 PM T DERMATOPATHOLOGY LABORATORY Final Diagnosis Specimen A. 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 SKIN, right FA: HYPERPLASTIC (HYPERTROPHIC) ACTINIC KERATOSIS (L57.0) SEBORRHEIC KERATOSIS (L82.1) (see microscopic description) Specimen C. SKIN, left lat prieto: HYPERPLASTIC (HYPERTROPHIC) ACTINIC KERATOSIS WITH ACANTHOLYTIC FEATURES (L57.0) (see microscopic description) 0 5:06 PM T DERMATOPATHOLOGY LABORATORY Clinical History A-B: R/O BCC, SCC, melanoma. 0 5:06 PM T DERMATOPATHOLOGY LABORATORY Gross Description Specimen A: Received is one formalin filled container labeled with the patient's name and designated crown of scalp. The specimen consists of a shave (2 pieces) biopsy measuring [id number], [id number]. Jar 0. Specimen B: Received is one formalin filled container labeled with the patient's name and designated right FA. The specimen consists of a shave biopsy measuring [id number]. Jar 0. Specimen C: Received is one formalin filled container labeled with the patient's name and designated left lat prieto. The specimen consists of a shave biopsy measuring [id number]. Jar 0. 0 5:06 PM T DERMATOPATHOLOGY LABORATORY Microscopic Description Specimen A. SKIN, crown of scalp: There is the superficial aspect of a cellular, dermal based tumor comprised of spindle, oval, and polygonal cells with pleomorphic and polymorphic nuclei. Multinucleated giant cells and mitotic figures are present. By immunohistochemistr y, tumor cells are positive for CD10 (strong, diffuse) and CD68 (patchy). They do not show significant staining for desmin, CD34, or pancytokeratin. They show weak patchy staining with SMA. S100 and MART-1/Melan-A show rare/focal staining of cells not seen on H&E of undetermined significance but favored to represent dendritic cells. 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 On superficial biopsy, these two neoplasms have nearly identical histopathological features with the main distinction based on extent of tumor involvement. Clinical correlation is recommended. Specimen B. SKIN, right FA: There is hyperkeratosis alternating with parakeratosis. There is epidermal hyperplasia with disorderly maturation of keratinocytes with nuclear pleomorphism confined to the lower half of the epidermis. Sections show an adjacent acanthotic lesion composed of relatively uniform keratinocytes. There is hyperkeratosis and pseudo horn cysts formation. Specimen C. SKIN, left lat prieto: There is hyperkeratosis alternating with parakeratosis. There is epidermal hyperplasia with disorderly maturation of keratinocytes with nuclear pleomorphism confined to the lower half of the epidermis. Focally there is a suprabasilar cleft with acantholytic cells. 0 5:06 PM CDT DERMATOPATHOLOGY LABORATORY Disclaimer An external and internal positive and negative controls are appropriate for the histochemical, immunohistochemical and immunofluorescence stain(s) in this case (if any), except where stated explicitly. The performance characteristics of the stain(s) cited in this report were developed and its performance characteristic determined by the Dermatopathology Laboratory at [facility], directed by Dr. Cristina Renteria. These tests need not be, and therefore are not, approved by the [place] Food and Drug Administration. The tests are used for clinical purposes. Billing Codes Specimen Charges Stain Charges 01917 27967 35521 1 1 1 90526 66309 65009 75876 75501 11887 58875 77596 1 1 1 1 1 1 1 1 0 5:06 PM CDT DERMATOPATHOLOGY LABORATORY Embedded Images 0 5:06 PM CDT DERMATOPATHOLOGY LABORATORY Pathology/Cytology TISSUE SPECIMEN FROM SKIN / Unknown 06/07/2020 06/08/2020 3:20 PM CDT Miscellaneous samples (specimen) TISSUE SPECIMEN FROM SKIN / Unknown 06/07/2020 06/08/2020 3:20 PM CDT Miscellaneous samples (specimen) TISSUE SPECIMEN FROM SKIN / Unknown 06/07/2020 06/08/2020 3:20 PM CDT Krissy Guerrero MD LAB - PATHOLOGY/CYT OLOGY ORDERABLES DERMATOPATHOLOGY LABORATORY [facility] - Department of Dermatology [facility] [address] [place] [address] documented in this encounter Visit Diagnoses Not on filedocumented in this encounter Care Teams Front Office Clerk Relationship Specialty Start Date End Date Jaime Verdin MD PCP - General 07/17/17 documented as of this encounter
--- OUTSIDE RECORDS SUMMARY | 2025-02-03 09:17 | XMS_ITS | Encounter Summary ---
Author Organization [facility] [place] [facility] Address [address] [place] [address] Phone Care Team Providers Care Fast Food Team Member Name Role Phone Kaleigh Henderson MD Primary Care Provider Encounter Details Date Type Department Care Team (Late st Contact Info) Description 02/02/2025 Telephone [facility] Cardiology [address] [facility] 8th [place] [address] [place] [id number] Jonathan Markham MD [address] [facility] [address] [place], [place] [address] Social History Tobacco Use Types Packs/Day Years Used Date Smoking Tobacco: Never Smokeless Tobacco: Never Sex and Gender Information Value Date Recorded Sex Assigned at Not on file Legal Sex Male 4:34 AM BOARDING HOUSE MANAGER Gender Identity Male 12/31/2019 11:55 AM BOARDING HOUSE MANAGER Sexual Orientation Not on file documented as of this encounter Miscellaneous Notes * Telephone Encounter - Rita Doll - 02/03/2025 8:17 AM CDT Padmini Cortes I called and scheduled MrKody And Mrs. Argueta with at the [place] location 02-08-2025 at 1:45 and 2:00 pm. * Telephone Encounter - Claudia Montejo - 02/02/2025 3:02 PM CDT Shahrzad Patient is calling in regards to speaking to someone about his appointment that he was supposed to have last week. documented in this encounter Plan of Treatment Not on file documented as of this encounter Visit Diagnoses Not on filedocumented in this encounter Care Teams Fast Food Team Member Relationship Specialty Start Date End Date Kaleigh Henderson MD [address] [facility] [address] [address] PCP - General Family Practice 06/10/24 documented as of this encounter
--- OUTSIDE RECORDS SUMMARY | 2025-02-03 09:17 | XMS_ITS | Clinical Summary ---
Author Organization [facility] Address [address] [place] [address] Care Team Providers Care Shift Production Supervisor Name Role Phone Jaime Verdin MD Primary Care Provider [phone] Allergies Active Allergy Reactions Criticality Noted Date Comments Carvedilol Other (see comment) 01/13/2013 Medications Cholecalciferol (VITAMIN D3) 2000 units Cap 08/06/2017 Acti ve fluorouracil 5 % cream KM TO NECK BID FOR 30 DAYS 6 07/13/2019 Active Folic Acid 20 MG Cap Active Ginseng 50 MG Cap Active magnesium 250 MG tablet Active Multiple Vitamins-Mineral s (CENTRUM) Tab Take 1 tablet by mouth daily. Active mupirocin 2 % ointment 3 (three) times daily. 0 07/16/2019 Active Potassium 99 MG tablet Active valACYclovir 1 g tablet TK 2 TS PO BID FOR 1 DAY 09/30/2019 Active pravastatin 20 MG tablet 08/29/2020 Active loperamide 2 MG tablet USE DIRECTED. Active acetaminophen (TYLENOL) 500 MG tablet Take 500 mg by mouth every 6 (six) hours as needed for Pain. 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 Esophageal reflux 01/14/2013 Enlarged prostate without lo wer urinary tract symptoms (luts) 06/27/2012 Elevated prostate specific antigen (PSA) 012 Resolved Problems Problem Noted Date Diagnosed Date Resolved Date Routine general medical exam ination at a health care facility 06/19/2012 03/26/2022 Immunizations Name Administration Dates Next Due Dt (1-<7 Y.O.) 05/12/2004 Fluzone High Dose - >Age 65 (Prefilled Syringe) 08/03/2022,07/29/2020,07/14/2019,2016,07/23/2016 Hepatitis A (Generic) 05/12/2004 Influenza Adult (Generic) 08/08/2021,07/14/2019 PFIZER COVID-19 (SANCHEZ CAP), MRNA, LNP-S, PF, 30 MCG/0.3 ML DILMA-SUCROSE, IM 03/27/2022 PFIZER COVID-19 (ORIGINAL FORMULATION, PURPLE CAP) mRNA, LNP-S, PF, 30 MCG/0.3 ML DOSE 08/25/2021,12/23/2020,12/02/2020 Pneumococcal (Pneumovax 23) 09/29/2007 Pneumococcal (Prevnar 13) 08/02/2015 Zoster (Zostavax) 16478 Unt/0.65Ml 03/24/2014 Family History Medical History Relation Comments Heart Attack Father No Known Problems Maternal Aunt No Known Problems Maternal Grandmother No Known Problems Maternal Uncle No Known Problems Paternal Aunt No Known Problems Paternal Grandfather No Known Problems Paternal Grandmother No Known Problems Paternal Uncle Relation Status Comments Father Maternal Aunt Maternal Grandmother Maternal Uncle Mother Paternal Aunt Paternal Grandfather Paternal Grandmother Paternal Uncle Social History Tobacco Use Types Packs/Day Years Used Date Smoking Tobacco: Never Smokeless Tobacco: Never Alcohol Use Standard Drinks/Week Comments No 0 (1 standard drink = 0.6 oz pur e alcohol) AUDIT-C Answer Date Recorded Frequency of Alcohol Consumption Never 07/21/2019 Average Number of Drinks Not on file 019 Frequency of Binge Drinking Not on file 06/29 PHQ-2 Answer Date Recorded PHQ-2 Score - If the patient scores above 3, please move on to questions 3-9 0 09/11/2021 Sex and Gender Information Value Date Recorded Sex Assigned at Not on file Legal Sex Male 8:25 PM CDT Gender Identity Not on file Sexual Orientation Not on file Last Filed Vital Signs Vital Sign Reading Time Taken Comments Blood Pressure 150/66 03/14/2023 11:34 AM CDT Pulse 60 03/20/2022 11:19 AM CDT Temperature 36.9 C (98.4 F) 03/14/2023 11:34 AM CDT Respiratory Rate - - Oxygen Saturation 97% 09/11/2021 1:54 PM DETECTIVE PRECINCT Inhaled Oxygen Concentration - - Weight 71.7 kg (158 lb) 03/14/2023 11:34 AM CDT Height 171.5 cm (5' 7.5 ) 07/09/2022 11:29 AM CD T Body Mass Index 24.38 07/09/2022 11:29 AM CDT Plan of Treatment Health Maintenance Due Date Last Done Comments ASCVD Statin 1935 DTaP, Tdap and Td Vaccines (1 - Tdap) 05/13/2004 05/12/2004 RSV Immunization or 60+ Years (1 - 1-dose 75+ series) 2010 Zoster Vaccines (2 of 3) 05/19/2014 03/24/2014 ASCVD LDL 12/20/2022 12/20/2021, 02/26, 01/30/2018, Additional history exists Annual Medicare Wellness Visit 03/21/2023 03/20/2022 COVID-19 Vaccine ( season) 2024 03/27/2022, 08/25/2021, 12/23/2020, Additional history exists Pneumococcal Vaccine: 65+ Years Completed 08/02/2015, 09/29/2007 Meningococcal B Vaccine Aged Out No l onger eligible based on patient's age to complete this topic Meningococcal Vaccine Aged Out No kyra augusto eligible based on patient's age to complete this topic RSV Immunizations Under 20 Months Aged Out No longer eligible based on patient's age to complete this topic Procedures Procedure Name Priority Date/Time Associated Diagnosis Comments LIPID PANEL Routine 12/20/2021 9:05 AM DETECTIVE PRECINCT CAD (coronary artery disease) Mitral incompetence Disease of cardiovascular system from Last 3 Months or Most Recently Relevant to Health Maintenance Results * LIPID PANEL (12/20/2021 9:05 AM DETECTIVE PRECINCT) [facility] CHOLESTEROL 126 0 - 199 MG/DL [facility] TRIGLYCERIDES 93 0.00 - 150.00 MG/DL [facility] Comment: NCEP REFERENCE VALUES FOR TRIGLYCERIDES: NORMAL: <150 MG/DL BORDERLINE HIGH: 150 - 199 MG/DL HIGH: 200 - 499 MG/DL VERY HIGH: >/= 500 MG/DL HDL 43 >40 MG/DL [facility] LDL (CALCULATED) 64 0 - 99 MG/DL [facility] Comment: CUTOFF VALUES RECOMMENDED BY THE NATIONAL CHOLESTEROL EDUCATION PROGRAM: DESIRABLE: CHOLESTEROL <200 MG/DL LDL <100 MG/DL BORDERLINE: CHOLESTEROL 200-239 MG/DL LDL 101-159 MG/DL HIGHER RISK: CHOLESTEROL >240 MG/DL LDL >160 MG/DL, HDL <40 MG/DL NON HDL CHOLESTEROL 83 NO REFERENCE RANGE MG/DL [facility] Comment: A REASONABLE GOAL FOR NON-HDL CHOLESTEROL IS ONE THAT IS 30 MG/DL HIGHER THAN THE LDL CHOLESTEROL GOAL. CHOL/HDL RATIO 2.9 0.0 - 5.0 . [facility] Comment: OUTSIDE ORDER WASH U DR ABHISHEK FERNANDO FAX [phone] CMP,LIPID IS PATIENT FASTING?->YES 12/20/2021 9:05 AM DETECTIVE PRECINCT 12/21/2021 5:24 AM DETECTIVE PRECINCT us Jiame Verdin MD LABORATORY Final Resul t [employer] [address] [place] [address], from Last 3 Months or Most Recently Relevant to Health [place] [id number] [facility] MEDICARE [facility] Care Teams Shift Production Supervisor Relationship Specialty Start Date End Date Jaime Verdin MD [address] [address] PCP - General 10/15/16
[2025-02-03 09:59] LABS: Alanine Aminotransferase 23 U/L (6-50); Albumin Level 4.6 g/dL (3.5-5.1); Alkaline Phosphatase 65 U/L (38-126); Anion Gap 9 mmol/L (4-12); Aspartate Amino Transferase 42 U/L (17-59); Bilirubin,Total 0.6 mg/dL (0.2-1.3); Blood Urea Nitrogen 16 mg/dL (9-20); Calcium 9.4 mg/dL (8.4-10.2); Carbon Dioxide 27 mmol/L (22-30); Chloride 101 mmol/L (98-107); Estimated Glomerular Filt Rate 53; Glucose 96 mg/dL (65-110); Potassium 4.5 mmol/L (3.4-5.0); Sodium 137 mmol/L (137-145)
[2025-02-03 14:17] LABS: Hemoglobin A1C 5.7 % (<5.7)
== END 2025-02-03 08:46 | disposition home or self-care (01) ==
PROVIDERS: PCP Family Medicine; Referring Provider Urology; Visit Provider Family Medicine
DX: R73.03 Prediabetes (principal); I10 Essential (primary) hypertension; E03.9 Hypothyroidism, unspecified; N32.81 Overactive bladder
CPT/HCPCS: 36415; 80053; 83036; 84443